=== PATIENT | female | born 1995 | race Caucasian/White ===

== ENCOUNTER 2021-10-02 22:36 | Inpatient (IN) ==
[~2021-10-02 22:36] MED LIST: Azithromycin 500 MG in 0.9 % Sodium Chloride 250 ML IVPB PRN; Betamethasone Acet/SodPhos 30 MG/5 ML VIAL IM SCH; Famotidine 20 MG/2 ML VIAL IVP PRN; Metoclopramide 10 MG/2 ML VIAL IVP PRN; Naloxone 0.4 MG/ML INJ IVP PRN; Ondansetron 4 MG/2 ML VIAL IVP PRN; Penicillin G Potassium 5,000,000 UNIT in 0.9 % Sodium Chloride Mini Bag 100 ML IVPB ONE
[2021-10-02] MEDS ORDERED: EPHEDrine 50 MG/ML VIAL IVP PRN (23:25)
[2021-10-03 00:02] LABS: Bilirubin,Urine Negative (Negative); Blood,Urine Negative (Negative); Clarity,Urine Clear (Clear); Color,Urine Light-Yellow (Yellow); Glucose,Urine (UA) Normal (Normal); Ketones,Urine Negative (Negative); Leukocyte Esterase,Urine Negative (Negative); Nitrite,Urine Negative (Negative); Protein,Urine Negative (Neg-Trace); Specific Gravity,Urine 1.007 (1.010-1.025); Urobilinogen,Urine Normal (Normal)
[2021-10-03 00:16] LABS: Basophils # 0.1 K/mcL (0.0-0.2); Basophils % 0.5 %; Eosinophils # 0.3 K/mcL (0.0-0.6); Eosinophils % 3.2 %; Hematocrit 38.4 % (35.3-44.9); Hemoglobin 12.5 g/dL (11.5-15.4); Immature Granulocytes % 1.4 % (0-4); Lymphocytes # 1.8 K/mcL (0.6-4.6); Lymphocytes % 18.8 %; Mean Corpuscular HGB Conc 32.6 g/dL (31.6-35.5); Mean Corpuscular Hemoglobin 28.2 pg (28.0-33.3); Mean Corpuscular Volume 86.7 fL (83.0-100.0); Mean Platelet Volume 9.9 fL (9.4-12.4); Monocytes # 0.7 K/mcL (0.0-1.3); Monocytes % 7.4 %; Neutrophils # 6.4 K/mcL (1.6-8.9); Platelet Count 262 K/mcL (140-400); Red Blood Count 4.43 M/mcL (3.82-4.97); Red Cell Distribution Width 16.3 % (11.5-14.5); Segmented Neutrophils % 68.7 %; White Blood Count 9.3 K/mcL (4.3-11.1)
[2021-10-03 00:43] LABS: Influenza A PCR Negative (Negative); Influenza B PCR Negative (Negative); Resp. Syncytial Virus PCR Negative (Negative)
[2021-10-03 00:48] LABS: SARS-CoV-2 by PCR (In House) Negative (Negative)
[2021-10-03] MEDS: Penicillin G Potassium 2,500,000 UNIT/105 ML MLS IVPB SCH ×5 (04:33→22:06)
[2021-10-03] MEDS: Ringers Solution, Lactated 1,000 ML IVC SCH ×3 (04:34→18:21)
[2021-10-03] MEDS ORDERED: Oxytocin 30 UNIT/503 ML BAG IVC SCH (05:00)
[2021-10-03] MEDS: *HR* Nalbuphine 10 MG/ML AMPUL IV PRN ×2 (10:06→13:31)
[2021-10-03] MEDS: Epidural Premix (fent/bupiv) 110 ML EP SCH (19:36)
[2021-10-04] MEDS: Epidural Premix (fent/bupiv) 110 ML EP SCH (01:19)
[2021-10-04] MEDS: Penicillin G Potassium 2,500,000 UNIT/105 ML MLS IVPB SCH ×2 (02:09→06:31)
[2021-10-04] MEDS ORDERED: Ibuprofen 600 MG TABLET PO ONE (07:20)
[2021-10-04] MEDS ORDERED: Ondansetron ODT 4 MG TAB.RAPDIS SL PRN (08:41)
[2021-10-04] MEDS ORDERED: Oxytocin 30 UNIT/503 ML BAG IVC SCH (08:41)
[2021-10-04] MEDS ORDERED: Benzocaine/Menthol 56 GM AEROSOL SPRAY TP PRN (08:41)
[2021-10-04] MEDS ORDERED: Lanolin 7 G OINT...G. TP PRN (08:41)
[2021-10-04] MEDS: Prenatal Vit/FA 1 EACH TABLET PO SCH (10:06)
[2021-10-04] MEDS: Ibuprofen 600 MG TABLET PO SCH ×3 (11:50→23:54)
[2021-10-04] MEDS: Acetaminophen 325 MG TABLET PO SCH ×2 (14:48→19:36)
[2021-10-05] MEDS: Acetaminophen 325 MG TABLET PO SCH ×4 (03:25→15:52)
[2021-10-05] MEDS: Ibuprofen 600 MG TABLET PO SCH ×3 (06:26→15:51)
[2021-10-05 07:23] VITALS: BP 90/56; PULSE 88; TEMP 98.3; O2SAT 96
[2021-10-05] MEDS: Prenatal Vit/FA 1 EACH TABLET PO SCH (08:44)
== END 2021-10-05 16:45 | disposition home or self-care (01) | DRG 806 ==
LOC: 1NENULAB → 1NENUOBS 10-04 08:30
PROVIDERS: ADMIT Registered Nurse; ATTEND Registered Nurse